=== PATIENT | female | born 1970 | race Hispanic/Latino ===

== ENCOUNTER 2024-09-25 12:25 | Emergency (ER) | payer OTHER, MEDICAID ==
[~2024-09-25] VITALS: Ht 152.4 cm; Wt 139.3 kg
--- NOTE | 2024-09-25 12:31 | ERN ---
ED Note History of Present Illness Stated Complaint: VOMITING Chief Complaint: Nausea,Vomiting,Diarrhea Time Seen by MD: 12:26 Dictation: PATIENT IS A 54-YEAR-OLD FEMALE COMING IN TODAY WITH COMPLAINTS OF LEFT LOWER QUADRANT PAIN WITH NAUSEA VOMITING ONSET ONE MONTH PRIOR TO ARRIVAL. . NO FEVER NO CHILLS NO CHANGE IN URINATION. SHE STATES SHE SAW DR. ARTURO CADET YESTERDAY WHO ORDERED A CT WITH CONTRAST ORAL AND IV AND [place] [facility] [place]. SHE STATES SHE DOES NOT HAVE THE RESULTS AND THEY WE WILL BE AVAILABLE TO HER ON THE September. SHE STATES SHE IS STILL IN PAIN AND HERE FOR FURTHER EVALUATION AND TREATMENT. NO CHEST PAIN NO BACK PAIN Allergies: Coded Allergies: ibuprofen (Unverified Allergy, Unknown, 09/25/24) Past Medical History History: Not Applicable RN Note Reviewed/Agreed w/PFSH: Yes Review of System Dictation CONSTITUTIONAL: NEGATIVE EXCEPT FOR HPI HEAD/FACE: NEGATIVE EXCEPT FOR HPI EENT: NEGATIVE EXCEPT FOR HPI RESPIRATORY: NEGATIVE EXCEPT FOR HPI GASTROINTESTINAL/ABDOMINAL: NEGATIVE EXCEPT FOR HPI LEFT LOWER QUADRANT PAIN WITH GENITOURINARY: NEGATIVE EXCEPT FOR HPI MUSCULOSKELETAL: NEGATIVE EXCEPT FOR HPI INTEGUMENTARY: NEGATIVE EXCEPT FOR HPI NEUROLOGICAL/PSYCH: NEGATIVE EXCEPT FOR HPI HEMATOLOGIC/LYMPHATIC: NEGATIVE EXCEPT FOR HPI ALL SYSTEMS NEGATIVE, EXCEPT NOTED ABOVE. 13 POINT REVIEW OF SYSTEMS ASSESSED AND ALL NEGATIVE EXCEPT FOR ABOVE. Initial Vital Sign VS Vital Signs Date Time Temp Pulse Resp B/P (MAP) Pulse Ox O2 Delivery O2 Flow Rate FiO2 09/25/24 12:30 97.9 81 18 165/93 95 0 09/25/24 12:33 Room Air* 21 Physical Exam Dictation VITAL SIGNS REVIEWED GENERAL APPEARANCE: ALERT, ORIENTED X 3, MILD ACUTE DISTRESS, WELL DEVELOPED, NOURISHED. OBESE HEAD AND FACE: NON-TRAUMATIC. EYES: PERRL, PINK CONJUNCTIVAS, EYELID NO TRAUMA, ANTERIOR CHAMBER WITH ARCUS SENILIS. EARS: PINNAS INTACT AND NO SIGNS OF TRAUMA OR ERYTHEMA EAR CANALS CLEAR AND NO DISCHARGE TM NO ERYTHEMA NOSE: NO DISCHARGE, NO BLEEDING. OROPHARYNX: MOUTH NORMAL, TONGUE PINK, PHARYNX CLEAR,NO ERYTHEMA, TONSILS NO EXUDATES, NO ABSCESSES NOTED, MUCOUS MEMBRANE MOIST NECK: SUPPLE, NON-TENDER, NO THYROMEGALY, NO MASSES, NO JVD, NO BRUITS BREAST:DEFERRED CHEST:NO TENDERNESS, NO CREPITUS, NO PARADOXICAL MOVEMENT, NO RETRACTIONS LUNGS:CLEAR, WELL-VENTILATED, SYMMETRIC, NO RALES, NO WHEEZING, NO RHONCHI, NO STRIDOR, GOOD BREATH SOUNDS BILATERALLY HEART: REGULAR RATE, REGULAR RHYTHM, NO MURMUR, NO GALLOPS VASCULAR: NO PERIPHERAL EDEMA, ABDOMEN: SOFT, POSITIVE BOWEL SOUNDS, NONDISTENDED, NO GUARDING, MILD LEFT LOWER QUADRANT TENDERNESS., NO REBOUND, NO MASSES NO HEPATOMEGALY, NO SPLENOMEGALY, NO PRITCHARD'S SIGN, NO HERNIAS. NO CVAT RECTAL: DEFERRED GENITAL: DEFERRED NEUROLOGICAL: NORMAL SPEECH, MOTOR FUNCTION INTACT, SENSORY FUNCTION INTACT MUSCULOSKELETAL: NECK NONTENDER, FULL RANGE OF MOTION, BACK NONTENDER, FULL RANGE OF MOTION, EXTREMITIES: NONTENDER, FULL RANGE OF MOTION SKIN: COLOR PINK, DRY, NO TURGOR, NO RASH, NO LACERATIONS, NO ABRASIONS, NO CONTUSIONS. LYMPHATIC: DEFERRED Results (Laboratory/Radiology) Laboratory/Radiology Laboratory Tests Test 09/25/24 12:45 White Blood Count 6.8 K/uL (4.8-10.8) Red Blood Count 4.76 MIL/uL (4.00-5.50) Hemoglobin 12.9 g/dL (12.0-16.0) Hematocrit 40.2 % (36-48) Mean Corpuscular Volume 84.5 fL (79-99) Mean Corpuscular Hemoglobin 27.1 pg (27.0-33.0) Mean Corpuscular Hemoglobin Concent 32.1 g/dL (32.0-36.0) Red Cell Distribution Width 14.8 % (11.0-15.5) Platelet Count 283 K/uL (130-400) Mean Platelet Volume 9.7 fL (7.5-10.5) Immature Granulocyte % (Auto) 1.2 % (0-1) H Neutrophils (%) (Auto) 65.6 % (40.0-77.0) Lymphocytes (%) (Auto) 22.4 % (21.0-51.0) Monocytes (%) (Auto) 8.0 % (3.0-13.0) Eosinophils (%) (Auto) 2.2 % (0.0-8.0) Basophils (%) (Auto) 0.6 % (0.0-5.0) Neutrophils # (Auto) 4.5 K/uL (1.8-7.7) Lymphocytes # (Auto) 1.5 K/uL (1.0-4.8) Monocytes # (Auto) 0.5 K/uL (0.1-1.0) Eosinophils # (Auto) 0.15 K/uL (0.00-0.70) Basophils # (Auto) 0.04 K/uL (0.00-0.20) Absolute Immature Granulocyte (auto 0.08 K/uL (0-1) Nucleated Red Blood Cells 0.0 % (0.0-0.19) Sodium Level 138 mmol/L (136-145) Potassium Level 3.8 mmol/L (3.5-5.1) Chloride Level 104 mmol/L (101-111) Carbon Dioxide Level 32 mmol/L (21-32) Blood Urea Nitrogen 8 mg/dL (7-18) Creatinine 0.6 mg/dL (0.5-1.0) Glomerular Filtration Rate Calc 105 mL/min (>90) Random Glucose 124 mg/dL (70-105) H Total Calcium 8.7 mg/dL (8.5-10.1) Lipase 39 U/L (16-77) 1410/PATIENT IN ORAL AND IV CONTRASTED CT [place] [facility] [place] CADET. RESULTS OBTAINED FROM RADIOLOGY DEMONSTRATE ACUTE SIGMOID DIVERTICULITIS WITHOUT PERFORATION OR ABSCESS. Labs Reviewed?: Yes ED Course ED Course Orders Procedure Category Date Status Time Cbc With Differential LAB 09/25/24 Complete 12:29 Urinalysis Profile LAB 09/25/24 Logged 12:29 0.9%Nacl 1000ml (Ns PHA 09/25/24 Complete 1000ml) 12:30 Morphine 2mg Syg PHA 09/25/24 Complete (Morphine 2mg Syg) 12:30 Ondansetron 4mg Inj PHA 09/25/24 Complete (Zofran 4mg Inj) 12:30 Lipase LAB 09/25/24 Complete 12:29 Basic Metabolic Panel LAB 09/25/24 Complete 12:29 Zosyn 3.375gm+Ns 50ml PHA 09/25/24 Complete (Zosyn 3.375gm+Ns 13:56 Current Medications Medications (Trade) Dose Ordered Sig/Jacob Route PRN Reason Start Time Stop Time Status Last Admin Dose Admin Morphine Sulfate (morPHINE 2MG SYG) 2 mg ONCE ONCE IVP 09/25/24 12:30 09/25/24 12:32 DC 09/25/24 14:02 Ondansetron HCl (zoFRAN 4MG INJ) 4 mg ONCE ONCE IVP 09/25/24 12:30 09/25/24 12:32 DC 09/25/24 14:00 Piperacillin Sod/ Tazobactam Sod (Zosyn 3.375gm+NS 50ml) 3.375 gm ONCE STAT IVPB 09/25/24 13:56 09/25/24 13:59 DC 09/25/24 14:04 Sodium Chloride 1,000 ml @ 0 mls/hr ONCE ONCE IV 09/25/24 12:30 09/25/24 12:32 DC 09/25/24 14:00 Vital Signs Date Time Temp Pulse Resp B/P (MAP) Pulse Ox O2 Delivery O2 Flow Rate FiO2 09/25/24 12:33 97.9 81 18 165/93 95 Room Air* 0 21 09/25/24 12:30 97.9 81 18 165/93 95 0 1600/spoke to patient at length regarding clinical findings and CT results yesterday. She was emphatic that she did not want to be admitted to the hospital stated she could go home and be compliant with dietary changes, an tibiotic and follow up with her doctor next week. All questions answered and she was strongly encouraged to come back if fever more than 101 pain got worse or any new changes Medical Decision Making MDM MDM: Differential diagnosis: Diverticulitis/diverticulosis/hernia/UTI/abdominal pain/electrolyte imbalance/dehydration Rationale: Tests considered and ordered secondary to shared decision making include: Labs, CT done with IV and oral contrast yesterday. Results obtained Previous outside records reviewed: Old ER visits. Risk of complication and/or morbidity or mortality of patient management: None Medications-Per medication reconciliation Need for hospitalization: Patient does not meet criteria for hospitalization. Patient refuses that the admission this time wants to go home and be treated outpatient. Need for emergency major/minor surgery: No There are no social concerns with this patient. Prescription drug management Prescriptions will include symptomatic care Augmentin/Motrin Patient's prior external medical records from other ER visits were reviewed by me as indicated. Prior testing and results from previous visits were reviewed. Prior tests were taken into account with medical decision making and resource utilization, independent historian/historians were used to obtain complete medical history. I independently interpreted the test that were performed, results were reviewed by me and considered findings on radiology if ordered. Medical management and examination interpretation discussions were had by me with other qualified healthcare professionals as indicated for the patient's care. DX & DISP Disposition: Discharge Departure Impression: Primary Impression: Diverticulitis of sigmoid colon Additional Impressions: Uncontrolled diabetes mellitus, Nausea & vomiting Condition: Stable Scripts Ondansetron (Ondansetron Odt) 4 Mg Tab.rapdis 4 MG PO Q6HPRN PRN for nausea, #16 TAB 0 Refills Prov: LAST MONTALVO NP 09/25/24 Dicyclomine HCl (Bentyl) 20 Mg Tab 20 MG PO Q6HPRN PRN for Abdominal pain, #20 TAB Prov: LAST MONTALVO NP 09/25/24 Amoxicillin/Potassium Clav (Amox Tr-K Clv 875-125 mg Tab) 875 Mg-125 Mg Tablet 1 EACH PO BID for 10 Days, #20 TAB 0 Refills Prov: LAST MONTALVO NP 09/25/24 Additional Instructions: Follow-up with primary care provider in 1 to 2 days. Take medications as directed here in the emergency room. Okay to continue home medications unless otherwise discussed during your visit in the emergency room today. Return to your nearest emergency room if symptoms worsen or if there is no improvement. Call 911 if you need immediate assistance. Take Tylenol or Motrin [id number] as needed and if no contraindications are present. Increase oral hydration. A wound culture or urine culture was ordered here in the emergency room department please follow-up with primary care provider and advise them to get repeat ports from our facility. If you had any Anil wrap/splints that were applied here, please do not remove them until you see your primary care or specialty. Take antibiotics as directed until gone. , clear liquid diet for the next 36 hours, then advance diet slowly to a regular high-fiber diet. Follow up with your doctor on Friday or Friday without fail for management. Return to the emergency room if pain gets worse, temperature more than 101 or any new changes Time of Disposition: 16:03 I have reviewed the case, and I agree with, Diagnosis and Plan LAST MONTALVO NP Sep 25, 2024 12:31
[2024-09-25 12:56] LABS: BASOPHILS # (AUTO) 0.04 K/uL (0.00-0.20); BASOPHILS % (AUTO) 0.6 % (0.0-5.0); EOSINOPHILS # (AUTO) 0.15 K/uL (0.00-0.70); EOSINOPHILS % (AUTO) 2.2 % (0.0-8.0); HEMATOCRIT 40.2 % (36-48); IMMATURE GRANULOCYTE ABSOLUTE 0.08 K/uL (0-1); LYMPHOCYTES # (AUTO) 1.5 K/uL (1.0-4.8); LYMPHOCYTES % (AUTO) 22.4 % (21.0-51.0); MEAN CORPUSCULAR HEMOGLOBIN 27.1 pg (27.0-33.0); MEAN CORPUSCULAR HGB CONC 32.1 g/dL (32.0-36.0); MEAN CORPUSCULAR VOLUME 84.5 fL (79-99); MONOCYTES # (AUTO) 0.5 K/uL (0.1-1.0); NEUTROPHILS # (AUTO) 4.5 K/uL (1.8-7.7); NEUTROPHILS % (AUTO) 65.6 % (40.0-77.0); PLATELET COUNT (AUTO) 283 K/uL (130-400); RED BLOOD CELL COUNT(AUTO) 4.76 MIL/uL (4.00-5.50); RED CELL DISTRIBUTION WIDTH 14.8 % (11.0-15.5); WHITE BLOOD COUNT (AUTO) 6.8 K/uL (4.8-10.8)
[2024-09-25 13:04] LABS: CREATININE 0.6 mg/dL (0.5-1.0); POTASSIUM 3.8 mmol/L (3.5-5.1)
[2024-09-25] MEDS: ondanSETRON 4MG INJ IVP ONE (14:00)
[2024-09-25] MEDS: 0.9%NACL 1000ML 1,000 ML IV ONE (14:00)
[2024-09-25] MEDS: morPHINE 2 MG SYG IVP ONE (14:02)
[2024-09-25] MEDS: ZOSYN 3.375GM +NS 50ML IVPB STA (14:04)
[2024-09-25] MEDS ORDERED: AMOX1TAB16 PO (16:02)
[2024-09-25] MEDS ORDERED: ONDA-243 PO (16:02)
[2024-09-25] MEDS ORDERED: DICY20TA2 PO (16:02)
[2024-09-25 16:53] LABS: APPEARANCE,URINE CLEAR (CLEAR); BILIRUBIN,URINE NEGATIVE (NEGATIVE); COLOR,URINE LIGHT-YELLOW (YELLOW); GLUCOSE, URINE (UA) NEGATIVE (NEGATIVE); KETONES,URINE NEGATIVE (NEGATIVE); LEUKOCYTE ESTERASE ,URINE NEGATIVE Leu/uL (NEGATIVE); NITRATE,URINE NEGATIVE (NEGATIVE); OCCULT BLOOD,URINE NEGATIVE (NEGATIVE); PROTEIN,URINE NEGATIVE (NEGATIVE); UROBILINOGEN,URINE 0.2 mg/dL (0.2-1.0)
[2024-09-25 16:56] LABS: ADD UA MICROSCOPIC YES
[2024-09-25 16:58] LABS: BACTERIA,URINE RARE /HPF (None Seen); MUCUS,URINE RARE LPF (None Seen); SQUAMOUS EPITHELIAL CELL,UR MOD /HPF (0-2); WBC,URINE 0-1 /HPF (0-1)
[2024-09-25 17:07] VITALS: BP 135/68; PULSE 68; RESP 18; TEMP 98.2; O2SAT 96
== END 2024-09-25 17:21 | disposition home or self-care (01) ==
LOC: EDH 12:25
DX: K57.32 Diverticulitis of large intestine without perforation or abscess without bleeding (principal); E11.65 Type 2 diabetes mellitus with hyperglycemia; R11.2 Nausea with vomiting, unspecified; Z88.6 Allergy status to analgesic agent
CPT/HCPCS: 99285; 96365; 96375; 80048; 83690; 85025; 81001; 36415; J2270; J7030; J2405; J2543